=== PATIENT | male | born 1950 | race Caucasian/White ===

== ENCOUNTER 2019-09-16 07:14 | Observation (INO) | payer OTHER, BC ==
[2019-09-16] MEDS ORDERED: ONDANSETRON 4 MG/2 ML VIAL ONE (07:46)
[2019-09-16] MEDS ORDERED: MECLIZINE HCL 12.5 MG TAB ONE (07:46)
--- NOTE | 2019-09-16 07:52 | RAD REPORT ---
EXAM DESCRIPTION: CT - Ct Stroke Brain Wo Cont - 09/16/2019 7:39 am CLINICAL HISTORY: Dizziness COMPARISON: none TECHNIQUE: Computed axial tomography of the head was obtained. All CT scans are performed using dose optimization technique as appropriate and may include automated exposure control or mA/KV adjustment according to patient size. FINDINGS: An intracranial bleed is not seen . The ventricles are normal in caliber. No extra-axial fluid collection is noted. Ill-defined low-density is present within the brainstem A mild to moderate chronic sinusitis IMPRESSION: Ill-defined low-density within the brainstem is a common location for beam hardening art ifact. An acute infarction can also have this appearance. If clinically indicated further evaluation with MRI can be obtained Dr Turpin of the emergency room was notified at 7:46 a.m. September 16, 2019
[2019-09-16 08:22] LABS: Protime INR 1.05
[2019-09-16] MEDS ORDERED: ASPIRIN 325 MG TAB ONE (08:22)
[2019-09-16 08:23] LABS: Absolute Lymphocytes (CBC) 1.4 K/uL (0.7-4.9); Basophils % 0.5 % (0-1.3); Hematocrit 43.1 % (39.6-49.0); Lymphocytes % 24.1 % (15.3-44.8); MPV 8.5 fL (7.6-11.3); RBC Red Blood Cell Count 4.95 M/uL (4.33-5.43)
[2019-09-16] MEDS ORDERED: FOLIC ACID 5 MG/ML VIAL ONE (08:23)
--- NOTE | 2019-09-16 08:37 | RAD REPORT ---
EXAM DESCRIPTION: Carmen Single View09/16/2019 7:54 am CLINICAL HISTORY: Chest pain COMPARISON: 2019 FINDINGS: The lungs appear clear of acute infiltrate. The heart is normal size IMPRESSION: No acute abnormalities displayed
[2019-09-16 08:39] LABS: BUN Blood Urea Nitrogen 17 mg/dL (7-18); Bicarbonate 32 mmol/L (21-32); Glucose Level 98 mg/dL (74-106); Potassium 3.8 mmol/L (3.5-5.1); Sodium Level 142 mmol/L (136-145); Troponin (Emerg Dept Use Only) < 0.02 ng/mL (0.0-0.045)
--- NOTE | 2019-09-16 10:20 | EDPHYS ---
Physician Documentation [facility] Name: Aly Ratliff Age: 69 yrs Sex: Male : 1950 Arrival Date: 09/16/2019 Time: 07:16 Bed 8 Private MD: ED Physician Chapo Turpin HPI: 09/15 07:30 This 69 yrs old Male presents to ER via EMS with complaints of Dizziness. rn 07:30 The patient presents with dizziness, feeling off balance, sense of spinning. Onset: The rn symptoms/episode began/occurred at an unknown time. Modifying factors: The symptoms are alleviated by nothing, the symptoms are aggravated by movement of head, standing up, changing position. Severity of symptoms: At their worst the symptoms were moderate in the emergency department the symptoms are unchanged. The patient has experienced a previous episode. Reports last known normal was last night, reports woke up and had urinated in bed, more than has had before, sleeps on pad normally since prostatectomy years ago. When tried to get up from bed felt dizziness, unable to stand or walk, assoc with nausea but no vomiting, no focal weakness, also has demyelinating polyneuropathy. Reports has happened once in past but quickly went away. Not on blood thinners. . Historical: - Allergies: 07:29 PENICILLINS; bp 07:29 Sulfa (Sulfonamide Antibiotics); bp - Home Meds: 07:29 albuterol sulfate 90 mcg/actuation Inhl HFAA 2 puffs every 4-6 hours [Active]; bp amlodipine 2.5 mg tab 1 tab once daily [Active]; clonidine HCl 0.1 mg Oral tab 1 tab as needed [Active]; esomeprazole magnesium 40 mg oral cpDR 1 cap once daily [Active]; gabapentin 300 mg oral cap 1 cap 3 times per day [Active]; levocetirizine 5 mg oral tab 1 tab once daily [Active]; metoprolol tartrate 100 mg Oral tab 1 tab 2 times per day [Active]; pravastatin 40 mg oral tab 1 tab once daily [Active]; valsartan 160 mg oral tab 1 tab once daily [Active]; zaleplon 10 mg oral cap 1 cap once daily [Active]; zolpidem 10 mg Oral tab 1 tab once daily [Active]; - PMHx: 07:29 INSOMNIA; Hypertension; High Cholesterol; GERD; Hyperlipidemia; CHRONIC INFLAMMATORY bp DEMYELINATING POLYNEUROPATHY; - Immunization history:: Adult Immunizations up to date. - Social history:: Smoking status: Patient denies any tobacco usage or history of. - Family history:: not pertinent. - Hospitalizations: : No recent hospitalization is reported. ROS: 07:30 Constitutional: Negative for fever, chills, and weight loss, Eyes: Negative for injury, rn pain, redness, and discharge, ENT: Negative for injury, pain, and discharge, Neck: Negative for injury, pain, and swelling, Cardiovascular: Negative for chest pain, palpitations, and edema, Respiratory: Negative for shortness of breath, cough, wheezing, and pleuritic chest pain, Abdomen/GI: Negative for abdominal pain, vomiting, diarrhea, and constipation, MS/Extremity: Negative for injury and deformity, Skin: Negative for injury, rash, and discoloration, Neuro: Negative for weakness, numbness, tingling, and seizure. Exam: 07:30 Constitutional: This is a well developed, well nourished patient who is awake, alert, rn appears anxious Head/Face: Normocephalic, atraumatic. Eyes: Pupils equal round and reactive to light, extra-ocular motions intact. Lids and lashes normal. Conjunctiva and sclera are non-icteric and not injected. Cornea within normal limits. Periorbital areas with no swelling, redness, or edema. Cardiovascular: Regular rate and rhythm. No pulse deficits. Respiratory: Speaking full sentences. No increased work of breathing, no retractions or nasal flaring. Abdomen/GI: soft, non-tender MS/ Extremity: Pulses equal, no cyanosis. Neurovascular intact. Full, normal range of motion. Equal circumference. Neuro: Awake and alert, GCS 15, oriented to person, place, time, and situation. Cranial nerves II-XII grossly intact. Motor strength 4/5 in all extremities. Sensory grossly intact (reports chronic decreased sensation bilateral lower extremity periphery). 08:07 ECG was reviewed by the Attending Physician. rn Vital Signs: 07:16 BP 120 / 80; Pulse 71; Resp 17; Temp 97.7; Pulse Ox 99% ; bp 07:51 BP 128 / 80; Pulse 59; Resp 16; Pulse Ox 98% ; bp 09:12 BP 129 / 79; Pulse 56; Resp 11; Pulse Ox 98% ; bp 10:17 BP 128 / 74; Pulse 54; Resp 12; Pulse Ox 99% ; bp 11:06 BP 113 / 76; Pulse 60; Resp 14; Pulse Ox 98% ; bp 12:44 BP 127 / 78; Pulse 52; Resp 16; Pulse Ox 100% ; bp 13:57 BP 137 / 83; Pulse 57; Resp 17; Pulse Ox 100% ; mt2 14:23 BP 133 / 80; Pulse 56; Resp 14; Temp 97.9; Pulse Ox 100% ; mt2 MDM: 07:16 Patient medically screened. rn 08:04 ED course: Updated family with CT head results, is pending MRI lukas to rule out CVA.. rn 08:08 ED course: Dr Solorzano called with CT head results, density in brainstem, recommends rn MRI brain to rule out CVA, might be artifact. Updated family regarding ct head results over the phone, will treat as possible ischemic stroke until proven otherwise. . 10:18 Differential diagnosis: idiopathic dizziness, TIA, vertigo, medication side effect. rn Data reviewed: vital signs, nurses notes, lab test result(s), EKG, radiologic studies, CT scan, and as a result, I will admit patient. Counseling: I had a detailed discussion with the patient and/or guardian regarding: the historical points, exam findings, and any diagnostic results supporting the discharge/admit diagnosis, lab results, radiology results, the need for further work-up and treatment in the hospital. Response to treatment: There is no appreciated change of the patient's symptoms at this time, and as a result, I will admit patient. Admission orders: after a detailed discussion of the patient's condition and case, the admit orders are written by me. ED course: Pt not improved, still pending MRI brain, given aspirin and folic acid until CVA ruled out, could be medication problem such as ambien, but family insistent that has never done anything like this before. Admitted to Dr. Marmolejo for AMS and rule out CVA, with neuro consult. . 09/15 07:26 Order name: Troponin (emerg Dept Use Only); Complete Time: 08:48 rn 09/15 07:26 Order name: Basic Metabolic Panel; Complete Time: 08:48 rn 09/15 07:26 Order name: CBC with Diff; Complete Time: 08:48 rn 09/15 07:26 Order name: Protime (+inr); Complete Time: 08:48 rn 09/15 07:26 Order name: Ptt, Activated; Complete Time: 08:48 rn 09/15 07:26 Order name: CT Stroke Brain w/o Contrast; Complete Time: 08:01 rn 09/15 07:26 Order name: Stroke CXR 1 View; Complete Time: 08:48 rn 09/15 08:05 Order name: MRI Stroke Protocol rn 09/15 12:40 Order name: MRI; Complete Time: 13:05 EDVT 09/15 12:41 Order name: MRI; Complete Time: 13:05 EDVT 09/15 12:45 Order name: MRI; Complete Time: 13:05 EDVT 09/15 14:28 Order name: EDVT 09/15 07:26 Order name: EKG; Complete Time: 07:27 rn 09/15 07:26 Order name: Accucheck; Complete Time: 07:32 rn 09/15 07:26 Order name: Cardiac monitoring; Complete Time: 07:32 09/15 07:26 Order name: EKG - Nurse/Tech; Complete Time: 07:50 rn 09/15 07:26 Order name: IV Saline Lock; Complete Time: 07:32 09/15 07:26 Order name: Labs collected and sent; Complete Time: 07:40 09/15 07:26 Order name: NPO; Complete Time: 07:32 09/15 07:26 Order name: O2 Per Protocol; Complete Time: 07:32 09/15 07:26 Order name: O2 Sat Monitoring; Complete Time: 07:32 09/15 07:26 Order name: Stroke Swallow Screen; Complete Time: 07:32 rn 09/15 10:33 Order name: CONS Physician Consult EDVT EC:07 Rate is 59 beats/min. Rhythm is regular. QRS Fountain is Normal. MT interval is normal. QRS rn interval is normal. QT interval is normal. No Q waves. T waves are Normal. No ST changes noted. Clinical impression: Sinus bradycardia. Interpreted by me. Reviewed by me. Administered Medications: 07:45 Drug: Meclizine 50 mg Route: PO; bp 08:21 Follow up: Response: No adverse reaction bp 07:45 Drug: Zofran (Ondansetron) 4 mg Route: IVP; Site: left antecubital; bp 08:21 Follow up: Response: Nausea is decreased bp 08:10 Drug: foLIC Acid 1 mg Route: IVPB; Site: left antecubital; bp 14:23 Follow up: IV Status: Completed infusion; IV Intake: 50ml mt2 08:10 Drug: Aspirin 325 mg Route: PO; bp 10:20 Follow up: Response: No adverse reaction bp Disposition: 09/16/19 10:20 Hospitalization ordered by Timothy Marmolejo for Observation. Preliminary diagnosis are Dizziness and giddiness, Ataxia, unspecified. - Bed requested for Telemetry/MedSurg (observation). - Status is Observation. mt2 - Condition is Stable. - Problem is new. - Symptoms are unchanged. Signatures: Dispatcher [employer] EDMS Chapo Turpin MD MD rn Peltier, Brian RN RN Negrita Herrera eb Amber Gutierrez, RN RN mt2 Corrections: (The following items were deleted from the chart) 13:46 10:20 Hospitalization Ordered by Timothy Marmolejo MD for Observation. Preliminary diagnosis eb is Dizziness and giddiness; Ataxia, unspecified. Bed requested for Telemetry/MedSurg (observation). Status is Observation. Condition is Stable. Problem is new. Symptoms are unchanged. rn 14:49 13:46 09/16/2019 10:20 Hospitalization Ordered by Timothy Marmolejo MD for Observation. mt2 Preliminary diagnosis is Dizziness and giddiness; Ataxia, unspecified. Bed requested for Telemetry/MedSurg (observation). Status is Observation. Condition is Stable. Problem is new. Symptoms are unchanged. eb
--- NOTE | 2019-09-16 10:20 | ER ---
Nurse's Notes [facility] Name: Aly Ratliff Age: 69 yrs Sex: Male : 1950 Arrival Date: 09/16/2019 Time: 07:16 Bed 8 Private MD: Diagnosis: Dizziness and giddiness;Ataxia, unspecified Presentation: 09/15 07:16 Chief complaint: EMS states: DIZZINESS. Coronavirus screen: Proceed with normal triage. bp Ebola Screen: No symptoms or risks identified at this time. Initial Sepsis Screen: Does the patient meet any 2 criteria? No. Patient's initial sepsis screen is negative. Does the patient have a suspected source of infection? No. Patient's initial sepsis screen is negative. Risk Assessment: Do you want to hurt yourself or someone else? Patient reports no desire to harm self or others. Onset of symptoms was September 16, 2019 at 01:30. 07:16 Method Of Arrival: EMS: [facility] bp 07:16 Acuity: JOHN 3 bp Triage Assessment: 07:29 General: Appears distressed, comfortable, Behavior is cooperative, appropriate for age, bp anxious. Pain: Denies pain. EENT: No deficits noted. Neuro: Reports dizziness. Cardiovascular: Rhythm is sinus rhythm. Respiratory: No deficits noted. GI: No signs and/or symptoms were reported involving the gastrointestinal system. : No signs and/or symptoms were reported regarding the genitourinary system. Derm: No deficits noted. Musculoskeletal: No deficits noted. Historical: - Allergies: 07:29 PENICILLINS; bp 07:29 Sulfa (Sulfonamide Antibiotics); bp - Home Meds: 07:29 albuterol sulfate 90 mcg/actuation Inhl HFAA 2 puffs every 4-6 hours [Active]; bp amlodipine 2.5 mg tab 1 tab once daily [Active]; clonidine HCl 0.1 mg Oral tab 1 tab as needed [Active]; esomeprazole magnesium 40 mg oral cpDR 1 cap once daily [Active]; gabapentin 300 mg oral cap 1 cap 3 times per day [Active]; levocetirizine 5 mg oral tab 1 tab once daily [Active]; metoprolol tartrate 100 mg Oral tab 1 tab 2 times per day [Active]; pravastatin 40 mg oral tab 1 tab once daily [Active]; valsartan 160 mg oral tab 1 tab once daily [Active]; zaleplon 10 mg oral cap 1 cap once daily [Active]; zolpidem 10 mg Oral tab 1 tab once daily [Active]; - PMHx: 07:29 INSOMNIA; Hypertension; High Cholesterol; GERD; Hyperlipidemia; CHRONIC INFLAMMATORY bp DEMYELINATING POLYNEUROPATHY; - Immunization history:: Adult Immunizations up to date. - Social history:: Smoking status: Patient denies any tobacco usage or history of. - Family history:: not pertinent. - Hospitalizations: : No recent hospitalization is reported. Screenin:31 Abuse screen: Denies threats or abuse. Denies injuries from another. Nutritional bp screening: No deficits noted. Tuberculosis screening: No symptoms or risk factors identified. Fall Risk None identified. Assessment: 07:31 General: SEE TRIAGE NOTE. bp 07:51 Reassessment: PT RETURNED FROM CT. INITIAL IMPRESSION OF HEAD CT IS UNREMARKABLE. bp 09:11 Reassessment: MRI PENDING. NO ACUTE NEURO DEFICITS NOTED. bp 10:17 Reassessment: MRI PENDING IN 45 MINUTES. PER MD, ADMIT PENDING. bp 11:06 Reassessment: PT TO MRI. bp 12:15 Reassessment: PT RETURNED FROM MRI. bp 12:44 Reassessment: HOSPITALIST AT B/S. bp 14:01 Reassessment: PT RETURNED FROM 2ND MRI, ADMIT COMPLETE. BED ASSIGNED. mt2 14:17 Reassessment: ADMIT COMPLETE AND BED ASSIGNED, RM 230 GRECIA SANTORO. mt2 Vital Signs: 07:16 BP 120 / 80; Pulse 71; Resp 17; Temp 97.7; Pulse Ox 99% ; bp 07:51 BP 128 / 80; Pulse 59; Resp 16; Pulse Ox 98% ; bp 09:12 BP 129 / 79; Pulse 56; Resp 11; Pulse Ox 98% ; bp 10:17 BP 128 / 74; Pulse 54; Resp 12; Pulse Ox 99% ; bp 11:06 BP 113 / 76; Pulse 60; Resp 14; Pulse Ox 98% ; bp 12:44 BP 127 / 78; Pulse 52; Resp 16; Pulse Ox 100% ; bp 13:57 BP 137 / 83; Pulse 57; Resp 17; Pulse Ox 100% ; mt2 14:23 BP 133 / 80; Pulse 56; Resp 14; Temp 97.9; Pulse Ox 100% ; mt2 ED Course: 07:16 Patient arrived in ED. bp 07:16 Chapo Turpin MD is Attending Physician. rn 07:20 Triage completed. bp 07:30 Arm band placed on. bp 07:31 Patient has correct armband on for positive identification. Bed in low position. Call bp light in reach. Side rails up X2. 07:31 Maintain EMS IV. Dressing intact. Good blood return noted. Site clean \T\ dry. Gauge \T\ bp site: 18 GAUGE LEFT AC. 07:38 CT Stroke Brain w/o Contrast In Process Unspecified. EDMS 07:[address] via stretcher. 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 Pulse ox on. NIBP on. Warm blanket given. bm7 07:39 Initial lab(s) drawn, by me, sent to lab. Maintain EMS IV. Dressing intact. Good blood bm7 return noted. Site clean \T\ dry. Gauge \T\ site: 18 G to Left AC. IV is patent, is intact, with good blood return, Flushed left antecubital with 5 ml normal saline. 07:40 Bud Borjas, YVAN is Primary Nurse. bp 07:49 Stroke CXR 1 View In Process Unspecified. EDMS 10:19 Timothy Marmolejo MD is Hospitalizing Provider. rn 10:21 No provider procedures requiring assistance completed. bp 14:21 Patient admitted, IV remains in place. mt2 Administered Medications: 07:45 Drug: Meclizine 50 mg Route: PO; bp 08:21 Follow up: Response: No adverse reaction bp 07:45 Drug: Zofran (Ondansetron) 4 mg Route: IVP; Site: left antecubital; bp 08:21 Follow up: Response: Nausea is decreased bp 08:10 Drug: foLIC Acid 1 mg Route: IVPB; Site: left antecubital; bp 14:23 Follow up: IV Status: Completed infusion; IV Intake: 50ml mt2 08:10 Drug: Aspirin 325 mg Route: PO; bp 10:20 Follow up: Response: No adverse reaction bp Intake: 14:23 IV: 50ml; Total: 50ml. mt2 Outcome: 10:20 Decision to Hospitalize by Provider. rn 14:21 Admitted to Tele accompanied by evelyn, via wheelchair, room 230, with chart, Report mt2 called to GRECIA SANTORO 14:21 Condition: stable 14:21 Instructed on the need for admit. 14:49 Patient left the ED. mt2 Signatures: Dispatcher [employer] EDChapo Harrison MD MD rn Peltier, Brian RN RN Aparna Bang RN RN 7 Amber Gutierrez RN RN mt2 Corrections: (The following items were deleted from the chart) 14:02 14:01 Reassessment: PT RETURNED FROM 2ND MRI mt2 mt2
--- NOTE | 2019-09-16 12:40 | RAD REPORT ---
EXAM DESCRIPTION: MRI - MRA Head Wo Cont - 09/16/2019 12:15 pm CLINICAL HISTORY: Syncope/dizziness COMPARISON: None. TECHNIQUE: Magnetic resonance angiogram was performed. 3D MIPS reconstruction performed FINDINGS: The anterior cerebral, middle cerebral, posterior cerebral, distal internal carotid and ba silar arteries do not demonstrate a significant stenosis. An aneurysm is not displayed. IMPRESSION: Unremarkable MRA brain.
--- NOTE | 2019-09-16 12:40 | RAD REPORT ---
EXAM DESCRIPTION: MRI - Brain W/Wo Cont - 09/16/2019 12:15 pm CLINICAL HISTORY: Syncope/dizziness COMPARISON: September 16, [address] TECHNIQUE: Axial, sagittal, and coronal magnetic images of the brain were obtained. 20 cc MultiHance administered intravenously FINDINGS: The brainstem demonstrates normal signal. Several small areas of abnormal signal within the left parietal lobe probably old small infarcts. The ventricles are normal in caliber. Diffusion-weighted/ ADC mapping sequences do not demonstrate evidence of an acute infarction. No abnormal enhancement within the brain is seen. An extra-axial fluid collection is not noted. Mild chronic sinusitis IMPRESSION: No acute abnormality displayed
--- NOTE | 2019-09-16 12:44 | RAD REPORT ---
EXAM DESCRIPTION: MRI - MRA Neck W/Wo Cont - 09/16/2019 12:15 pm CLINICAL HISTORY: Syncope/dizziness COMPARISON: None. TECHNIQUE: Magnetic resonance angiogram of the neck was performed. 20 cc MultiHance was administered intravenously. 3D MIPS reconstruction performed FINDINGS: Severe plaque is present within the left carotid bulb Mild plaque is present within the right carotid bulb The remainder of the common carotid, internal carotid and external carotid arteries do not demonstrat e a significant stenosis. An aneurysm is not seen. The vertebral arteries are codominant without visualization of an abnormality. IMPRESSION: Severe plaque left carotid bulb NASCET criteria used. Mild 0-49% stenosis Moderate 50-69% stenosis Severe 70-99% stenosis
--- NOTE | 2019-09-16 14:26 | RAD REPORT ---
EXAM DESCRIPTION: - CP - 09/16/2019 2:01 pm CLINICAL HISTORY: TIA COMPARISON: MRA Neck W/Wo Cont dated 09/16/2019 TECHNIQUE: Real-time sonographic evaluation of bilateral carotid and vertebral systems was performed . Shahid scale and Doppler interrogation were performed with waveform tracing bilaterally. FINDINGS: Normal high resistance waveforms are noted in both external carotid arteries. The common c arotid arteries and internal carotid arteries show normal low resistance waveforms. Significant calcified and noncalcified plaquing changes are present in the right carotid bulb and pro ximal ICA. Densely calcified plaquing changes are present in the proximal left carotid bulb. On visua l inspection there is significant stenosis of the right carotid bulb estimated at approximately 50%. Or significant focal stenosis seen at the left carotid bulb estimated 50-70%. The measured velocity v alues and the calculated ICA/ CCA ratios are not outside of normal range. The visual findings are bel ieved to be more accurate when viewed concurrently with the MRA neck findings. Antegrade flow seen in both vertebral arteries. Velocity values and ratios were recorded and are retained in the patient's imaging records. IMPRESSION: Bilateral calcified plaquing changes around each carotid bulb. Right-sided stenosis is estimated at 50% with the left-sided stenosis estimated at 50-70%.
[2019-09-16 15:19] VITALS: BMI 25.9
[2019-09-16] MEDS: NA CHLORIDE 0.9% 1,000 ML IV SCH (16:31)
--- NOTE | 2019-09-16 18:19 | P.HP ---
Certification for Inpatient Patient admitted to: Observation With expected LOS: <2 Midnights Practitioner: I am a practitioner with admitting privileges, knowledge of patient current condition, hospital course, and medical plan of care. Services: Services provided to patient in accordance with Admission requirements found in Title 42 Section 412.3 of the Code of Federal Regulations Patient History Date of Service: 09/16/19 Reason for admission: CONFUSION, INCONTINENCE History of Present Illness: MR. 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 80% ON MRA. SEV PLAQUE. 80% ON MRA. JUST DIAGNOSED TODAY. HE WAKES UP AFTER INCONTINENCE OF URINE THAT HAS NEVER HAPPENED, AFTER THAT HE REMAINED CONFUSED PER AND NOW I SAW HIM IN ER AT ABOUT 12:30 PM, HE WAS BACK TO HIS BASELINE NORMAL. HE IS GENERALLY WEAK. HE HAS NO FEVER, NO PAIN. Allergies levofloxacin [From Levaquin] Allergy (Verified 09/16/19 14:54) Hives/Rash povidone-iodine [From Betadine] Allergy (Verified 09/16/19 14:55) Hives soap [From Betadine] Allergy (Verified 09/16/19 14:55) Hives Sulfa (Sulfonamide Antibiotics) Adverse Reaction (Verified 09/16/19 14:55) Hives/Rash Home Medications: Allopurinol 300 mg PO DAILY 09/16/19 Amlodipine [Norvasc*] 5 mg PO BID 09/16/19 Famotidine [Pepcid] 20 mg PO BID 09/16/19 Gabapentin 300 mg PO BEDTIME 09/16/19 Nebivolol HCl [Bystolic*] 20 mg PO DAILY 09/16/19 Torsemide 60 mg PO DAILY 09/16/19 Zolpidem Tartrate [Ambien] 5 mg PO BEDTIME 09/16/19 - Past Medical/Surgical History Has patient received pneumonia vaccine in the past: Yes Diabetic: No -: insomnia -: htn -: high cholesterol -: chronic inflamatory neuropathy -: HTN (hypertension) [I10 (401.9)] -: TONSILELCTOMY -: HERNIA SX -: appendectomy -: hernia repair -: radical prostectomy -: 2 PENILE PROSTHESIS -: hemorroidectomy -: sinus sx - Family History Father Notes: old age - Social History Smoking Status: Former smoker Place of Residence: Home Review of Systems 10-point ROS is otherwise unremarkable Physical Examination - Vital Signs Temperature: 95.7 F Blood Pressure: 121/59 Pulse: 55 Respirations: 16 Pulse Ox (%): 100 - Physical Exam General: Alert, In no apparent distress HEENT: Atraumatic, PERRLA, Mucous membr. moist/pink, EOMI, Sclerae nonicteric Neck: Supple, 2+ carotid pulse no bruit, No LAD, Without JVD or thyroid abnormality Respiratory: Clear to auscultation bilaterally, Normal air movement Cardiovascular: Regular rate/rhythm, Normal S1 S2 Gastrointestinal: Normal bowel sounds, No tenderness Musculoskeletal: No tenderness Integumentary: No rashes Neurological: Normal gait, Normal speech, Normal strength at 5/5 x4 extr, Normal tone, Normal affect Lymphatics: No axilla or inguinal lymphadenopathy - Studies Laboratory Data (last 24 hrs) 09/16/19 07:34: Triglycerides 256 H, Cholesterol 225 H, HDL Cholesterol 38 L, Cholesterol/HDL Ratio 5.92 09/16/19 07:34: PT 12.4, INR 1.05, APTT 32.0 09/16/19 07:34: WBC 5.7, Hgb 14.6, Hct 43.1, Plt Count 217 09/16/19 07:34: Sodium 142, Potassium 3.8, BUN 17, Creatinine 1.22, Glucose 98 Assessment and Plan - Problems (Diagnosis) (1) Altered mental state Current Visit: Yes Status: Acute Plan: THIS KIND OF DISORIENTATION CAN HAPPEN FROM TIA OR SEIZURES. HE HAS 80% BLOCK ON MRA, CAROTIDS BUT SHOWS LESS OF DAMAGE DOWN TO 50-70% ON L SIDE. ANGIOGRAM MAY EVEN SHOW LOWER. START ASPIRIN 81 MG DAILY. LDL DOWN TO 70. WILL WAIT FOR DR. BLEDSOE TO READ EEG. Qualifiers: Altered mental status type: disorientation Qualified Code(s): R41.0 - Di sorientation, unspecified (2) Urinary incontinence Current Visit: Yes Status: Acute Plan: MORE SO WITH SEIZURES THAN TIA. (3) HTN (hypertension) Current Visit: Yes Status: Chronic Plan: STABLE FOR NOW WITHOUT ANY MEDS. HE HAS TRIED MANY MEDS AND HAS REACTION TO MOST MEDS. REACTION IS OF INTOLERANCE AND SOMETIMES RASH. Qualifiers: Hypertension type: essential hypertension Qualified Code(s): I10 - Essential (primary) hypertension (4) CVID (common variable immunodeficiency) Current Visit: Yes Status: Chronic Plan: HE HAS BEEN TO [employer] FOR YEARS AND HAS BEEN TREATED. (5) Intolerance of drug Current Visit: Yes Status: Chronic Plan: Augmentin Morphine Sulfate Statins Coreg Cardizem Bactrim Sulfa Antibiotics AmLODIPine = STOMACH ISSUES. Angiotensin Receptor Blockers = BENICAR, EDARBI- MOUTH SALIVATION. TINGLY , JAW CLENCHING. Hydroxychloroquine AmLODIPine = BURNING TONGUE, TINGLY - Advance Directives Does patient have a Living Will: No Does patient have a Durable POA for Healthcare: Yes
[2019-09-16 21:52] LABS: MPV 8.5 fL (7.6-11.3)
[2019-09-16 22:14] LABS: Platelet Estimate ND
[2019-09-17] MEDS: NA CHLORIDE 0.9% 1,000 ML IV SCH ×3 (05:09→09:29)
[2019-09-17 05:30] VITALS: O2SAT 94
--- NOTE | 2019-09-17 07:26 | EKG ---
Test Date: 2019-09-16 Test Time: 07:54:38 Mid Level Business Analyst: ILENE MEASUREMENT RESULTS: Intervals: Rate: 59 MN: 152 QRSD: 82 QT: 406 QTc: 401 [place]: P: 62 MN: 152 QRS: 40 T: 18 INTERPRETIVE STATEMENTS: Sinus bradycardia Possible Left atrial enlargement Borderline ECG No previous ECG available for comparison Electronically Signed On 09-17-19 07:23:37 CDT by Alan Will
[2019-09-17] MEDS ORDERED: ASPIRIN EC 81 MG TAB PO SCH (09:00)
[2019-09-17] MEDS ORDERED: NEBIVOLOL HCL 20 MG PO SCH (09:00)
[2019-09-17] MEDS ORDERED: HOME MED 1 EA UNK (Allopurinol [Allopurinol] 300 MG) PO SCH (09:00)
[2019-09-17] MEDS ORDERED: ENOXAPARIN 40 MG/0.4 ML SQ SCH (09:00)
[2019-09-17] MEDS ORDERED: HOME MED 1 EA UNK (Amlodipine [Norvasc*] 5 MG) PO SCH (09:00)
[2019-09-17] MEDS ORDERED: FAMOTIDINE 20 MG PO SCH (09:00)
[2019-09-17 13:45] VITALS: BP 127/70; TEMP 97.4
[2019-09-17] MEDS ORDERED: ZOLPIDEM TARTRATE 5 MG TABLET PO SCH (21:00)
[2019-09-17] MEDS ORDERED: HOME MED 1 EA UNK (Gabapentin [Gabapentin] 300 MG) PO SCH (21:00)
--- NOTE | 2019-09-18 00:42 | CON ---
Reason For Consultation: Consultation called by Dr. Marmolejo because of possible seizures. 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 I spoke with the patient and his who was on the phone. He went to bed okay and wok e up to find himself urinated. His said while she was helping to clean the bed he appeared to b e staring off, not responding appropriately. He did not bite his tongue or lose stool control. He e ventually began to respond appropriately and was brought into the [facility]. 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 He has because of that severe pain in his legs and it is refractory to medications that he has used thus far and has significant difficulty sle eping. He said he has been to get up and use the bathroom as well. In retrospect, he rep orts in May having an episode where he apparently thought he was in the dream, but somehow lost con sciousness and fell out of the bed, fracturing his nose, hitting back of his head as well and his lef t shoulder. He did not follow up for medical attention. His also notes he has episodes of star ing off and the patient himself reports episodes of dropping objects where his arms might just subtly jerk without warning. His legs may also do the same. He denies a family history of seizures. [facility] hospitalization, he had a brain MRI, which ruled out acute ischemic or hemorrhagic stroke. His [facility] magnetic resonance angiogram, however, did show severe plaque in the left carotid bulb. His caroti d Doppler studies showed bilateral calcified plaque in each carotid bulb, right-sided stenosis estima andrez 50%, left-sided stenosis estimated to be 75%. His electrocardiogram showed a sinus bradycardia, possible left atrial enlargement. Since his hospitalization, he has not yet started on Keppra, but he was recommended that he be placed on Keppra to start 250 mg for 1 week, then 250 mg twice daily for a week, then 500 mg twice daily. Past Medical History: Chronic insomnia, CIDP with chronic leg pain, hypertension, dyslipidemia, and gastroesophageal reflux disease. Allergies: TO PENICILLIN AND SULFA. Medications At Home: Albuterol sulfate 90 mcg inhalation 2 puffs every 4 to 6 hours, amlodipine 2.5 mg daily, clonidine 0.1 mg daily, omeprazole 40 mg daily, gabapentin 300 mg 3 times daily, levocetiri zine 5 mg daily, metoprolol 100 mg twice daily, pravastatin 40 mg daily, valsartan 160 mg daily, and zaleplon 10 mg daily. Family History: Denies family history of seizures. 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 Otherwise, his systems' review is negative. Physical Examination: Vital Signs: Blood pressure 127/70, pulse 55, respiratory rate 16, temperature 97.4, oxygen saturati on 99% on room air, weight 197 pounds, height 6 feet 1 inch, BMI 26. General: Dr. Ratliff is . HEENT: He is normocephalic and atraumatic. Sclerae are anicteric. Oropharynx is moist and pink. Neck: Supple. Chest: Clear. Heart: Regular. Extremities: Show no edema or cyanosis. Neurological: He is alert and oriented to situation, place, and person. Follows all commands approp riately. Cranial nerves 2 through 12 are intact by exam. Motor examination of the upper and lower e xtremities, he has full strength proximally and distally. Sensory exam is stocking-glove loss to lig ht touch and temperature, more noticed in the lower extremities. Reflexes are still present at 1+ at the patellae, 0 at the heels, 1 in the biceps and triceps. Coordination intact in the upper extremi ties. Slight dysmetria noted in lower extremities. Gait, mildly wide-based ataxic gait. Laboratory Studies: Complete blood count with differential is normal. Coagulation panel is normal. Chemistries are unremarkable. Cholesterol panel shows elevated triglycerides at 256, cholesterol 22 5, LDL cholesterol 136, HDL cholesterol low at 38, cholesterol/HDL ratio at 5.92. MRA of his brain i s unremarkable. Assessment: 1.Mr. 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 He has multiple comorbid medical conditions, managed by Dr. Marmolejo, his [facility] physician. He does have severe stenosis by magnetic resonance angiogram of the left carotid bulb. He is at risk of ongoing seizures and he should be maintained on Keppra to titrate to 500 mg twice a day. He was told of seizure risk factors such as stress, fever, infection, sleep deprivation , and to address those factors. He was told of the importance of cutting back on medications such as some pain medicines like tramadol that can lower the seizure threshold and increase the chances of s eizures. He should try to avoid sleep medications as much as possible. 2.He may be discharged home and follow up with Dr. Patel's clinic where an ambulatory video EEG m onitoring study may be done to help characterize his convulsive or seizure-like episodes, especially those witnessed by his and that the patient notices. After his discharge today, he should call Dr. Patel's office on Saturday for a followup appointment in clinic. LINDA/REGGIE Voice ID: [id number] Report ID: [id number]
--- NOTE | 2019-09-18 10:06 | ECHO ---
HEIGHT: 6 ft 1 in WEIGHT: 197 lb 0 oz DATE OF STUDY: 09/17/[address]: Chapo Turpin JR, MD 2-DIMENSIONAL: YES M.MODE: YES DOPPLER: YES COLOR FLOW: YES TDS: YES PORTABLE: NO DEFINITY: NO BUBBLE STUDY: NO DIAGNOSIS: DIZZINESS CARDIAC HISTORY: CATHERIZATION: NO SURGERY: NO PROSTHETIC VALVE: NO PACEMAKER: NO MEASUREMENTS (cm) DIASTOLIC (NORMALS) SYSTOLIC (NORMALS) IVSd 0.9 (0.6-1.2) LA Diam 3.3 (1.9-4.0) LVEF 66% LVIDd 4.4 (3.5-5.7) LVIDs 2.8 (2.0-3.5) %FS 36% LVPWd 1.0 (0.6-1.2) Ao Diam 2.6 (2.0-3.7) 2 DIMENSIONAL ASSESSMENT: RIGHT ATRIUM: NORMAL LEFT ATRIUM: NORMAL RIGHT VENTRICLE: NORMAL LEFT VENTRICLE: NORMAL TRICUSPID VALVE: MITRAL VALVE: NORMAL PULMONIC VALVE: AORTIC VALVE: NORMAL PERICARDIAL EFFUSION: TRACE AORTIC ROOT: NORMAL LEFT VENTRICULAR WALL MOTION: NORMAL DOPPLER/COLOR FLOW: NORMAL COMMENTS: NORMAL LEFT VENTRICULAR EJECTION FRACTION 55-60% WITH NORMAL WALL MOTION. NORMAL DIASTOLIC FUNCTION. MILD TRICUSPID REGURGITATION. MILD PULMONARY INSUFFICIENCY. TECHNOLOGIST: Wilber DYKES
--- NOTE | 2019-09-18 12:12 | EEG ---
CHART: [id number] TEST ID#: [id number] DATE OF STUDY: 09/17/2019 THE EEG WAS RECORDED PORTABLE IN THE PATIENT'S ROOM ON A 17 CHANNEL MACHINE. ELECTRODES WERE APPLIED IN THE USUAL MANNER USING THE INTERNATIONAL 10-20 SYSTEM. THE WAKING BACKGROUND RHYTHM IN THIS RECORD CONSISTS OF WELL DEVELOPED AND WELL ORGANIZED WAVES OF 11 HZ., HICH ATTENUATE NORMALLY WITH EYE OPENING. EXCESS LOW VOLTAGE 18-22 HZ ACTIVITY IS EXPRESSED IN ALL REGIONS. THERE ARE NO FOCAL OR LATERALIZING FEATURES. NO EPILEPTIFORM ACTIVITY APPEARS. SLEEP OCCURRED NATURALLY. IN ADDITION NORMAL SLEEP PATTERNS ARE PRESENT. HYPERVENTILATION WAS NOT PERFORMED. PHOTIC STIMULATION PRODUCED FAIR DRIVING BILATERALLY. IMPRESSION: NORMAL EEG FOR THE AGE OF THE PATIENT IN [place], DROWSINESS AND SLEEP. THE PRESENCE OF EXCESS BETA ACTIVITY USUALLY REPRESENTS A MEDICATION EFFECT AND IS NOT ABNORMAL.
== END 2019-09-17 13:30 | disposition home or self-care (01) ==
LOC: ER 07:14 → ERHOLD 10:31 → 2ND 14:22
PROVIDERS: ADMIT Internal Medicine; ATTEND Internal Medicine
DX: G40.209 Localization-related (focal) (partial) symptomatic epilepsy and epileptic syndromes with complex partial seizures, not intractable, without status epilepticus (principal); R32 Unspecified urinary incontinence; I10 Essential (primary) hypertension; D83.0 Common variable immunodeficiency with predominant abnormalities of B-cell numbers and function; I65.23 Occlusion and stenosis of bilateral carotid arteries; R00.1 Bradycardia, unspecified; F51.04 Psychophysiologic insomnia; G61.81 Chronic inflammatory demyelinating polyneuritis; Z11.59 Encounter for screening for other viral diseases; I07.1 Rheumatic tricuspid insufficiency; I37.1 Nonrheumatic pulmonary valve insufficiency; E78.5 Hyperlipidemia, unspecified; K21.9 Gastro-esophageal reflux disease without esophagitis; M54.16 Radiculopathy, lumbar region; Z79.899 Other long term (current) drug therapy; Z85.46 Personal history of malignant neoplasm of prostate
CPT/HCPCS: 96365; 95816; 93005; 93306; 85025; 80048; 36415; 85049; 85610; 80061; 85730; 84484; 70450; 71045; 93880; 70553; 70544; 70549; 96375; 99285; 96366; U0002; A9577; J1650; J7030 ×2; J2405; G0378 ×3; J8597

== ENCOUNTER 2019-11-05 07:12 | Day surgery (SDC) | payer OTHER, BC ==
[2019-10-23 11:44] LABS: Absolute Lymphocytes (CBC) 1.3 K/uL (0.7-4.9); Basophils % 0.6 % (0-1.3); Hematocrit 48.2 % (39.6-49.0); Lymphocytes % 16.5 % (15.3-44.8); MPV 8.3 fL (7.6-11.3); RBC Red Blood Cell Count 5.52 M/uL (4.33-5.43)
[2019-10-23 11:45] LABS: Protime INR 1.07
[2019-10-23 11:53] LABS: Potassium 4.8 mmol/L (3.5-5.1)
[~2019-11-05 07:12] MED LIST: HEPA 1000U/500MLS 1,000 UNIT/500 ML BAG IV ONE; LIDOCAINE 1% MPF 30 ML VIAL ONE; NA CHLORIDE 0.9% 500 ML ONE
[2019-11-05] MEDS ORDERED: MIDAZOLAM HCL 2 MG/2 ML INJ ONE ×2 (07:19→07:43)
[2019-11-05] MEDS ORDERED: FENTANYL CITR 100 MCG/2 ML ONE (07:20)
[2019-11-05] MEDS ORDERED: ATROPINE SULF 1 MG/10 ML SYR IV ONE (07:20)
[2019-11-05] MEDS ORDERED: METHYLPREDNISOLONE 125 MG INJ ONE (07:35)
[2019-11-05 09:57] VITALS: TEMP 97; O2SAT 97
[2019-11-05 10:35] VITALS: BP 128/80
--- NOTE | 2019-11-05 10:39 | OP ---
Date of Procedure: 11/05/2019 Surgeon: Alan Will MD Dynamotor Repairer: Diamond Nagel. Procedure: Selective bilateral carotid angiogram. Indication: Abnormal carotid Doppler and CVD. Description Of Procedure: Mr. Ratliff is 69, had an abnormal carotid Doppler, normal stress test rece ntly, has multiple cardiac risk factors, admitted for carotid angiogram today as an outpatient. Prep ped and draped in the routine sterile fashion. He was given Solu-Medrol IV for iodine allergy. He w as given Versed and fentanyl for sedation. A 6-Swedish sheath was introduced in the right common femo ral artery successfully using the Seldinger technique. A JR4 catheter 6-Swedish was used to cannulate the left common carotid and the right common carotid. Selective coronary angiography revealed a nor mal common carotid artery and normal external carotid artery bilaterally. The right internal carotid artery had a nonocclusive dissection proximally without any focal stenosis. The left ostium of the internal carotid artery had about a 50% to 60% stenosis by acute CA. Complications: There were no complications. Estimated Blood Loss: 5 mL. Final Diagnoses: Nonocclusive right internal carotid artery dissection, 50% to 60% ostial left inter nal carotid artery stenosis. Anesthesia: Total conscious sedation was 30 minutes. Plan: Plan is for medical therapy. The patient will go home today after 2 hours of bedrest and I wi ll see him in the office in 2 weeks. No change in medical therapy. Angio-Seal was used to close the case. SUNIL/REGGIE Voice ID: [id number] Report ID: [id number]
== END 2019-11-05 10:28 | disposition home health service (06) ==
LOC: CCL 07:12
DX: I65.22 Occlusion and stenosis of left carotid artery (principal); I77.71 Dissection of carotid artery; I10 Essential (primary) hypertension; R07.89 Other chest pain; E78.5 Hyperlipidemia, unspecified; J44.9 Chronic obstructive pulmonary disease, unspecified; K21.9 Gastro-esophageal reflux disease without esophagitis; M10.9 Gout, unspecified; Z20.828 Contact with and (suspected) exposure to other viral communicable diseases; Z87.891 Personal history of nicotine dependence; Z88.3 Allergy status to other anti-infective agents; Z88.2 Allergy status to sulfonamides; Z91.048 Other nonmedicinal substance allergy status; Z82.49 Family history of ischemic heart disease and other diseases of the circulatory system
CPT/HCPCS: 85025; 80048; 36415; 85610; 85730; 36222; U0002; C1893; C1760; J2250 ×2; J3010; J7040; J1644; J2930